=== PATIENT | male | born 2000 | race African-American/Black ===

== ENCOUNTER 2018-10-24 21:36 | Emergency (ER) | payer OTHER ==
[~2018-10-24] VITALS: Ht 182.9 cm; Wt 102.1 kg
[2018-10-24] MEDS ORDERED: BUPIVACAINE 0.5%/EPI 30 ML SDV INJ ONE (22:15)
[2018-10-24] MEDS ORDERED: LIDOCAINE 1% W/EPINEPHRINE 20 ML VIAL INJ ONE (22:30)
--- NOTE | 2018-10-24 22:50 | NUR ---
PINO FAN AT BEDSIDE AT THIS TIME FOR WOUND CARE AND MEDICATION ADMINSTRATION, SEE eMAR. NAD NOTED AT THIS TIME. PT EDUCATED BY PINO FAN. VERBALIZED UNDERSTANDING.
[2018-10-24] MEDS ORDERED: TETANUS/DIPHTHERIA TOX ADULT 0.5 ML SYR IM ONE (23:00)
[2018-10-24 23:14] VITALS: BP 148/99
== END 2018-10-24 23:22 | disposition home or self-care (01) ==
LOC: ER 21:36
DX: S01.511A Laceration without foreign body of lip, initial encounter (principal); S00.83XA Contusion of other part of head, initial encounter; Y04.0XXA Assault by unarmed brawl or fight, initial encounter; Y92.89 Other specified places as the place of occurrence of the external cause
CPT/HCPCS: 90714; 99282

== ENCOUNTER 2019-08-09 09:11 | Emergency (ER) | payer BC ==
[~2019-08-09] VITALS: Ht 182.9 cm; Wt 102.1 kg
--- OUTSIDE RECORDS SUMMARY | 2019-08-09 09:14 | XMS REPORT ---
Author Author [facility] Address Unknown Phone Unavailable Care Team Providers Care Interventional Radiologist Name Role Phone Unavailable Unavailable Problems This patient has no known problems. Allergies, Adverse Reactions, Alerts This patient has no known allergies or adverse reactions. Medications This patient has no known medications. Encounters Start Date/Time End Date/Time Encounter Type Admission Type Attending [facility] Care Facility Care Department Encounter ID 2017-12-21 00:00:00 2017-12-21 00:00:00 Outpatient [facility] [id number] 2017-03-15 00:00:00 2017-03-15 00:00:00 Outpatient [facility] [id number]
[2019-08-09 09:19] VITALS: BP 147/79
== END 2019-08-09 09:23 | disposition home or self-care (01) ==
LOC: ER 09:11
DX: R20.2 Paresthesia of skin (principal); S64.11XA Injury of median nerve at wrist and hand level of right arm, initial encounter; F17.210 Nicotine dependence, cigarettes, uncomplicated
CPT/HCPCS: 99282

== ENCOUNTER 2020-04-17 11:26 | Emergency (ER) | payer BC ==
[~2020-04-17] VITALS: Ht 182.9 cm; Wt 127.0 kg
[2020-04-17] MEDS ORDERED: KETOROLAC TROMETHAMINE 60 MG/2 ML VIAL IM ONE (11:45)
[2020-04-17] MEDS ORDERED: DIAZEPAM 2 MG TAB PO ONE (11:45)
[2020-04-17] MEDS ORDERED: DIAZEPAM 5 MG TAB ONE (11:50)
--- OUTSIDE RECORDS SUMMARY | 2020-04-17 11:52 | XMS REPORT | Continuity of Care Document ---
Author Author [facility] Organization [facility] Address [address] [place] [address] Phone Unavailable Care Team Providers Care Hog Confinement System Manager Name Role Phone NONSTAFF PCP Unavailable Problems This patient has no known problems. Allergies, Adverse Reactions, Alerts This patient has no known allergies or adverse reactions. Medications This patient has no known medications. Procedures Procedure Date / Time Performed Performing Clinician [facility] e IMMUNIZATION ADMIN 2018-10-24 00:00:00 VERONICA ALLEN [facility] Encounters Start Date/Time End Date/Time Encounter Type Admission Type [facility] Care Department Encounter ID Source 2019-08-09 09:11:00 2019-08-09 09:23:[address] [facility] [id number] [facility] 2018-10-24 21:36:00 2018-10-24 23:22:[address] [facility] [id number] [facility] Results This patient has no known results.
--- NOTE | 2020-04-17 11:57 | Emergency Department Note ---
History of Present Illnes History of Present Illness Chief Complaint: Back Pain History of Present Illness This is a 20 year old male PATIENT IN FROM HOME WITH COMPLAINTS OF MIDDLE BACK PAIN SINCE YESTERDAY; STATES THAT [place] AND WHEN HE REACHED DOWN TO PICK HIM UP OFF THE SLIDE AND HURT HIS BACK; RATES PAIN 8/10, DENIES FALL OR TRAUMA. PATIENT ALERT AND ORIENTED, RESP EVEN AND NONLABORED, AMBULATORY WITHOUT ASSISTANCE. Historian: Patient Arrival Mode: Car General Operations Agent Required: No Onset (how long ago): day(s) Location: MID BACK Quality: PAIN Radiation: Reports non-radiation Severity: severe Onset quality: sudden Timing of current episode: constant Progression: unchanged Chronicity: new Context: Denies recent illness Relieving factors: none Exacerbating factors: none Associated symptoms: Reports denies other symptoms Past Medical/Family History Physician Review I have reviewed the patient's past medical and family history. Any updates have been documented here. Past Medical History Recent Fever: No Clinical Suspicion of Infectio: No New/Unexplained Change in Ment: No Past Medical History: None Past Surgical History: None Social History Smoking Cessation: Never Smoker Counseling Performed: No Alcohol Use: None Any Illegal Drug Use: No TB Exposure/Symptoms: No Physically hurt or threatened: No Family History Family history of heart diseas: No Other Last Tetanus: UNKNOWN Any Pre-Existing Lines (PICC,: No Review of Systems Review of Systems Constitutional: Reports no symptoms EENTM: Reports no symptoms Cardiovascular: Reports no symptoms Respiratory: Reports no symptoms Gastrointestinal: Reports no symptoms Genitourinary: Reports no symptoms Musculoskeletal: Reports back pain Integumentary: Reports no symptoms Neurological: Reports no symptoms Psychological: Reports no symptoms Endocrine: Reports no symptoms Hematological/Lymphatic: Reports no symptoms Review of other systems: All other systems negative Physical Exam Related Data Allergies: Coded Allergies: No Known Allergies (Unverified , 04/17/20) Triage Vital Signs Vital Signs Date Time Temp Pulse Resp B/P (MAP) Pulse Ox O2 Delivery O2 Flow Rate FiO2 04/17/20 11:28 97.3 72 20 100 Room Air Vital signs reviewed: Yes Physical Exam CONSTITUTIONAL Constitutional: Present well-developed, Present well-nourished HENT HENT: Present normocephalic, Present atraumatic, Present oropharynx clear/moist, Present nose normal HENT L/R: Present left ext ear normal, Present right ext ear normal EYES Eyes: Reports PERRL, Reports conjunctivae normal NECK Neck: Present ROM normal PULMONARY Pulmonary: Present effort normal, Present breath sounds normal CARDIOVASCULAR Cardiovascular: Present regular rhythm, Present heart sounds normal, Present capillary refill normal, Present normal rate GASTROINTESTINAL Abdominal: Present soft, Present nontender, Present bowel sounds normal GENITOURINARY Genitourinary: Present exam deferred SKIN Skin: Present warm, Present dry MUSCULOSKELETAL Musculoskeletal: Present ROM normal, Present other (MID-LOWER THORACIC PAIN, MILD TTP MIDLINE AND TTP/SPASM OF BILAT PARASPINAL MUSCLES, NEG SLR, NL DTR'S) NEUROLOGICAL Neurological: Present alert, Present oriented x 3, Present no gross motor or sensory deficits PSYCHOLOGICAL Psychological: Present mood/affect normal, Present judgement normal Assessment & Plan Medical Decision Making MDM ATRAUMATIC BACK PAIN, OCCURRED WHILE LIFTING SON, LIKELY MUSCLE SPASM Reassessment Reassessment TORADOL/VALIUM - IMPROVED - DC HOME, NAPROSYN/ROBAXIN, F/U PCP (WILL GIVE # FOR DR GRIFFITH - ON-CALL) Assessment & Plan Final Impression: (1) Muscle spasm Depart Disposition: HOME, SELF-CARE Last Vital Signs Date Time Temp Pulse Resp B/P (MAP) Pulse Ox O2 Delivery O2 Flow Rate FiO2 04/17/20 11:28 97.3 72 20 100 Room Air Medications in the ED Ketorolac Tromethamine 60 mg ONCE ONCE IM ; Start 04/17/20 at 11:45; Stop 04/17/20 at 11:49; Status DC Diazepam 5 mg ONCE ONCE PO ; Start 04/17/20 at 11:45; Stop 04/17/20 at 11:49; Status DC Diazepam 5 mg STK-MED ONCE .ROUTE ; Start 04/17/20 at 11:50; Stop 04/17/20 at 11:43; Status DC VITALY SPRING MD Apr 17, 2020 11:57
== END 2020-04-17 12:30 | disposition home or self-care (01) ==
LOC: ER 11:32
DX: M62.830 Muscle spasm of back (principal); M54.6 Pain in thoracic spine; X50.0XXA Overexertion from strenuous movement or load, initial encounter; Y92.830 Public park as the place of occurrence of the external cause
CPT/HCPCS: 99283; J1885

== ENCOUNTER 2024-02-23 05:53 | Emergency (ER) | payer SELFPAY ==
[~2024-02-23] VITALS: Ht 180.3 cm; Wt 121.6 kg
[~2024-02-23 05:53] MED LIST: DICYCLOMINE HCL20 MG PO; ONDANSETRON ODT4 MG PO
[2024-02-23 06:12] VITALS: TEMP 97.9
[2024-02-23] MEDS: KETOROLAC TROMETHAMINE 60 MG/2 ML VIAL IM ONE (06:31)
[2024-02-23] MEDS ORDERED: CYCLOBENZAPRINE10 MG PO (08:12)
[2024-02-23 08:22] VITALS: PULSE 75; RESP 14; O2SAT 98
== END 2024-02-23 08:26 | disposition home or self-care (01) ==
LOC: ER 07:26
DX: S16.1XXA Strain of muscle, fascia and tendon at neck level, initial encounter (principal); M54.6 Pain in thoracic spine; M54.50 Low back pain, unspecified; M62.830 Muscle spasm of back; V43.52XA Car driver injured in collision with other type car in traffic accident, initial encounter; Y92.488 Other paved roadways as the place of occurrence of the external cause
CPT/HCPCS: 72125; 72128; 72131; 99284; J1885